=== PATIENT | female | born 1980 | race Hispanic/Latino ===

== ENCOUNTER 2017-07-30 09:11 | Emergency (ER) | payer BC ==
[2017-07-30] MEDS ORDERED: LIDOCAINE HCL 1% 20 ML VIAL ONE (09:21)
[2017-07-30] MEDS ORDERED: TETANUS/DIPHTHERIA TOXOID [ADULT] 0.5 ML VIAL IM ONE (09:22)
[2017-07-30] MEDS ORDERED: AMOXICILLIN/POTASSIUM CLAV 875-125 TABLET PO ONE (09:41)
== END 2017-07-30 11:38 | disposition home or self-care (01) ==
LOC: EDH 09:11
DX: S61.451A Open bite of right hand, initial encounter (principal); G43.909 Migraine, unspecified, not intractable, without status migrainosus; Z91.013 Allergy to seafood; W54.0XXA Bitten by dog, initial encounter; Y93.89 Activity, other specified; Y92.098 Other place in other non-institutional residence as the place of occurrence of the external cause; Y99.8 Other external cause status
CPT/HCPCS: 12042; 73130; 90471; 90714

== ENCOUNTER 2019-06-25 01:56 | Emergency (ER) | payer BC ==
[2019-06-25] MEDS ORDERED: LIDOCAINE HCL 2% VISCOUS 15 ML UDCUP ONE (03:26)
[2019-06-25] MEDS ORDERED: MAG HYDROX/AL HYDROX/SIMETH ES 30 ML SUSP UDCUP ONE (03:26)
== END 2019-06-25 03:37 | disposition home or self-care (01) ==
LOC: EDH 01:56
DX: B34.9 Viral infection, unspecified (principal); G43.909 Migraine, unspecified, not intractable, without status migrainosus; Z91.048 Other nonmedicinal substance allergy status
CPT/HCPCS: 71046; 81025; 87804

== ENCOUNTER 2024-09-15 23:31 | Emergency (ER) | payer BC ==
[~2024-09-15] VITALS: Ht 165.1 cm; Wt 122.5 kg
[2024-09-16 00:08] LABS: BASOPHILS # (AUTO) 0.02 K/uL (0.00-0.20); BASOPHILS % (AUTO) 0.3 % (0.0-5.0); EOSINOPHILS # (AUTO) 0.48 K/uL (0.00-0.70); EOSINOPHILS % (AUTO) 7.6 % (0.0-8.0); IMMATURE GRANULOCYTE ABSOLUTE 0.01 K/uL (0-1); LYMPHOCYTES # (AUTO) 2.1 K/uL (1.0-4.8); LYMPHOCYTES % (AUTO) 33.9 % (21.0-51.0); MEAN CORPUSCULAR HEMOGLOBIN 25.9 pg (27.0-33.0); MEAN CORPUSCULAR HGB CONC 31.7 g/dL (32.0-36.0); MEAN CORPUSCULAR VOLUME 81.6 fL (79-99); MONOCYTES # (AUTO) 0.6 K/uL (0.1-1.0); MONOCYTES % (AUTO) 9.1 % (3.0-13.0); NEUTROPHILS # (AUTO) 3.1 K/uL (1.8-7.7); NEUTROPHILS % (AUTO) 48.9 % (40.0-77.0); PLATELET COUNT (AUTO) 268 K/uL (130-400); RED BLOOD CELL COUNT(AUTO) 4.41 MIL/uL (4.00-5.50); RED CELL DISTRIBUTION WIDTH 14.5 % (11.0-15.5); WHITE BLOOD COUNT (AUTO) 6.3 K/uL (4.8-10.8)
[2024-09-16] MEDS: 0.9%NACL 1000ML 1,000 ML IV ONE (00:10)
[2024-09-16] MEDS: Solu-medROL 125MG VIAL IVP ONE (00:11)
[2024-09-16 00:18] VITALS: PULSE 65; RESP 20
[2024-09-16] MEDS: IpraTROPium/alBUTERol SULFATE 3 ML SOLUTION IH ONE (00:18)
[2024-09-16 00:21] LABS: ABG BASE EXCESS -2.3 mmol/L (-2.0-3.0); ABG HCO3 20.4 mmol/L (21.0-28.0); ABG PCO2 30 mmHg (32-45); ABG PH 7.451 (7.350-7.450); PO2, ARTERIAL BG 102.2 mmHg (83.0-108.0); VENT MODE, BG RA (ROOM AIR)
[2024-09-16 00:21] LABS: CREATININE 0.8 mg/dL (0.5-1.0); POTASSIUM 3.6 mmol/L (3.5-5.1)
[2024-09-16 00:26] LABS: MAGNESIUM 1.9 mg/dL (1.80-2.40)
--- NOTE | 2024-09-16 00:26 | ERN ---
ED Note History of Present Illness Stated Complaint: SOB Chief Complaint: Shortness of Breath Time Seen by MD: 23:35 Time Seen by Midlevel: 23:35 Dictation: The patient is a 44-year-old female with no past medical history who presents to the emergency department with complaints of shortness of breath, cough with yellow sputum onset 10:00 p.m.. Patient reports she has been having on and off upper respiratory symptoms since June. Denies any fevers, sore throat or ear pain. Reports chest pain with coughing. Allergies: Coded Allergies: fish derived (Unverified Allergy, Unknown, 06/25/19) Past Medical History Past Medical History: No Pertinent History Surgical History: None RN Note Reviewed/Agreed w/PFSH: Yes Review of System Dictation Constitutional: Negative for fever,chills, and weight loss Eyes: Negative for injury, pain,redness, and discharge ENT: Negative for injury,pain or swelling Cardiovascular: Negative for chest pain, palpitations, and edema Respiratory: Positive for shortness of breath, cough, and wheezing, Abdomen/GI: Negative for abdominal pain, nausea, vomiting, diarrhea, and constipation Back: Negative for injury and pain : Negative for injury, bleeding and discharge MS/Extremity: Negative for injury and deformity Skin: Negative for rash, and discoloration Neuro: Negative for headache, weakness, numbness, tingling, and seizure Psych: Negative for suicide ideation, homicidal ideation, and hallucinations Initial Vital Sign VS Vital Signs Date Time Temp Pulse Resp B/P (MAP) Pulse Ox O2 Delivery O2 Flow Rate FiO2 09/15/24 23:33 98.4 83 20 138/86 95 Room Air 09/16/24 00:00 0 21 Physical Exam Dictation Vital Signs reviewed General Appearance: Alert, oriented x 3, mild distress, well developed, nourished. Head and Face: non-traumatic. Eyes: PERRL, pink conjunctivas, eyelid no trauma, anterior chamber with arcus senilis. Ears: Pinnas intact and no signs of trauma or erythema ear canals clear and no discharge TM no erythema Nose: No discharge, no bleeding. Oropharynx: Mouth normal, tongue pink. pharynx clear,no erythema, tonsils no exudates, no abscesses noted, mucous membrane moist Neck: Supple, non-tender, no thyromegaly, no masses, no JVD, no bruits Breast:Deferred Chest:No tenderness, no crepitus, no paradoxical movement, no retractions Lungs:Clear, well-ventilated, symmetric, no rales, + wheezing, no rhonchi, no stridor, good breath sounds bilaterally Heart: Regular rate, regular rhythm, no murmur, no gallops Vascular: no peripheral edema, Abdomen: Soft, positive bowel sounds, nondistended, no guarding, nontender, no rebound, no masses no hepatomegaly, no splenomegaly, no Haley's sign, no hernias. Rectal: Deferred Genital: Deferred Neurological: Normal speech, motor function intact, sensory function intact Musculoskeletal: Neck nontender, full range of motion, back nontender, full range of motion, Extremities: nontender, full range of motion Skin: Color pink, dry, no turgor, no rash, no lacerations, no abrasions, no contusions. Lymphatic: Deferred Results (Laboratory/Radiology) Laboratory/Radiology Laboratory Tests Test 09/15/24 23:57 09/16/24 00:20 09/16/24 00:30 09/16/24 01:05 White Blood Count 6.3 K/uL (4.8-10.8) Red Blood Count 4.41 MIL/uL (4.00-5.50) Hemoglobin 11.4 g/dL (12.0-16.0) L Hematocrit 36.0 % (36-48) Mean Corpuscular Volume 81.6 fL (79-99) Mean Corpuscular Hemoglobin 25.9 pg (27.0-33.0) L Mean Corpuscular Hemoglobin Concent 31.7 g/dL (32.0-36.0) L Red Cell Distribution Width 14.5 % (11.0-15.5) Platelet Count 268 K/uL (130-400) Mean Platelet Volume 10.2 fL (7.5-10.5) Immature Granulocyte % (Auto) 0.2 % (0-1) Neutrophils (%) (Auto) 48.9 % (40.0-77.0) Lymphocytes (%) (Auto) 33.9 % (21.0-51.0) Monocytes (%) (Auto) 9.1 % (3.0-13.0) Eosinophils (%) (Auto) 7.6 % (0.0-8.0) Basophils (%) (Auto) 0.3 % (0.0-5.0) Neutrophils # (Auto) 3.1 K/uL (1.8-7.7) Lymphocytes # (Auto) 2.1 K/uL (1.0-4.8) Monocytes # (Auto) 0.6 K/uL (0.1-1.0) Eosinophils # (Auto) 0.48 K/uL (0.00-0.70) Basophils # (Auto) 0.02 K/uL (0.00-0.20) Absolute Immature Granulocyte (auto 0.01 K/uL (0-1) Nucleated Red Blood Cells 0.0 % (0.0-0.19) Sodium Level 140 mmol/L (136-145) Potassium Level 3.6 mmol/L (3.5-5.1) Chloride Level 105 mmol/L (101-111) Carbon Dioxide Level 28 mmol/L (21-32) Blood Urea Nitrogen 18 mg/dL (7-18) Creatinine 0.8 mg/dL (0.5-1.0) Glomerular Filtration Rate Calc 93 mL/min (>90) Random Glucose 89 mg/dL (70-105) Total Calcium 8.5 mg/dL (8.5-10.1) Magnesium Level 1.90 mg/dL (1.80-2.40) Total Creatine Kinase 79 U/L (21-232) Troponin I High Sensitivity < 4 ng/L (4-50) L < 4 ng/L (4-50) L B-Type Natriuretic Peptide 14 pg/mL (0-100) Blood Gas Specimen Type Arterial Arterial Blood pH 7.451 (7.350-7.450) Arterial Blood Partial Pressure CO2 30 mmHg (32-45) L Arterial Blood Partial Pressure O2 102.2 mmHg (83.0-108.0) Arterial Blood HCO3 20.4 mmol/L (21.0-28.0) L Arterial Blood Oxygen Saturation 98.0 % (94.0-98.0) Arterial Blood Base Excess -2.3 mmol/L (-2.0-3.0) L Blood Gas Temperature 37.0 CELSIUS (35.5-37.0) Blood Gas Vent Mode RA (ROOM AIR) FiO2 21.0 % Blood Gas Specimen Comment [employer], RR Urine Color YELLOW (YELLOW) Urine Appearance CLEAR (CLEAR) Urine pH 6.0 (5.0-8.0) Urine Specific Breaks 1.031 (1.001-1.031) Urine Protein NEGATIVE mg/dL (NEGATIVE) Urine Glucose (UA) NEGATIVE mg/dL (NEGATIVE) Urine Ketones NEGATIVE mg/dL (NEGATIVE) Urine Occult Blood NEGATIVE (NEGATIVE) Urine Nitrate NEGATIVE (NEGATIVE) Urine Bilirubin NEGATIVE mg/dL (NEGATIVE) Urine Urobilinogen 3 mg/dL (0.2-1.0) H Urine Leukocyte Esterase 500 Aura/uL (NEGATIVE) H Urine RBC 11-25 /HPF (0-1) H Urine WBC 11-25 /HPF (0-1) H Urine Squamous Epithelial Cells RARE /HPF (0-2) Urine Bacteria None /HPF (None Seen) Urine HCG, Qualitative NEGATIVE (NEGATIVE) Test 09/16/24 01:14 Influenza Type A Antigen Negative For Type A Influenza Type B Antigen Negative For Type B SARS-CoV-2 Antigen (Rapid) PRESUMPTIVE NEGATIVE Labs Reviewed?: Yes EKG: (+) rhythm (Sinus rhythm) EKG Comment: Date:09/15/2024 Time:2334 Ventricular rate:77 MO interval:161 QRS duration:92 QT/QTc:378 EKG interpretation: Sinus rhythm Reviewed by ED Attending no STEMI ED Course ED Course Orders Procedure Category Date Status Time Vital Signs Per CPOE 09/15/24 Transmitted Routine 23:33 B-Type Natriuretic LAB 09/15/24 Complete Peptide 23:33 Chest 1vw RAD 09/15/24 Taken 23:33 12 Lead Ekg Tracing- EKG 09/15/24 Logged Technical 23:33 Oxygen By Nc/Pulse Ox CPOE 09/15/24 Transmitted 23:33 Maintain Iv CPOE 09/15/24 Transmitted 23:33 Iv Insertion CPOE 09/15/24 Transmitted 23:33 Cardiac Monitoring CPOE 09/15/24 Transmitted 23:33 Pulse Oximetry With CPOE 09/15/24 Transmitted Vs And Prn 23:33 Cbc With Differential LAB 09/15/24 Complete 23:33 Activity: Br W/Brp CPOE 09/15/24 Transmitted With Assist 23:33 Creatine Kinase, Total LAB 09/15/24 Complete 23:33 Troponin I High LAB 09/15/24 Complete Sensitivity 23:33 Urinalysis Profile LAB 09/15/24 Complete 23:33 Basic Metabolic Panel LAB 09/15/24 Complete 23:33 Covid19 (Sars Antigen LAB 09/15/24 Complete Rapid) 23:46 Influenza Type A & B, LAB 09/15/24 Complete Rapid 23:46 ,Urine Test LAB 09/15/24 Complete 23:46 Methylprednisolone PHA 09/16/24 Complete Succ 125mg (Solu-Medr 00:00 Ipratropium/Albuterol PHA 09/16/24 Complete Neb (Duoneb) 00:00 0.9%Nacl 1000ml (Ns PHA 09/16/24 In Process 1000ml) 00:00 Arterial Blood Gas RT 09/15/24 Transmitted 23:50 Magnesium LAB 09/15/24 Complete 23:33 Arterial Blood Gas LAB 09/16/24 Complete 00:20 Troponin I High LAB 09/16/24 Complete Sensitivity 00:55 Culture Urine ANGEL LUIS 09/16/24 In Process 01:07 Ceftriaxone 1g Vial PHA 09/16/24 Complete (Rocephine 1g Inj) 01:30 Current Medications Medications (Trade) Dose Ordered Sig/Nesha Route PRN Reason Start Time Stop Time Status Last Admin Dose Admin Albuterol (DUOneb) 1 UDVIAL ONCE ONCE IH 09/16/24 00:00 09/16/24 00:01 DC 09/16/24 00:18 Ceftriaxone Sodium (ROCEphine 1G INJ) 1 gm ONCE ONCE IVPB 09/16/24 01:30 09/16/24 01:31 DC Methylprednisolone Sodium Succinate (Solu-medROL 125MG) 125 mg ONCE ONCE IVP 09/16/24 00:00 09/16/24 00:01 DC 09/16/24 00:11 Sodium Chloride 1,000 ml @ 125 mls/hr ONCE ONCE IV 09/16/24 00:00 09/16/24 07:59 09/16/24 00:10 Vital Signs Date Time Temp Pulse Resp B/P (MAP) Pulse Ox O2 Delivery O2 Flow Rate FiO2 09/16/24 01:02 98.2 80 20 108/79 Room Air* 0 21 09/16/24 00:18 65 20 09/16/24 00:00 98.2 77 20 115/79 99 Room Air* 0 21 09/15/24 23:33 98.4 83 20 138/86 95 Room Air HEART Score Response (Comments) Value History: Low suspicion (0) 0 EKG: Normal 0 Age: < 45yrs (0) 0 Risk Factors: No known risk factors (0) 0 Initial Troponin: Normal limit (0) 0 HEART Score Risk: Low Risk for MACE (1-3) Total 0 Medical Decision Making [facility] The patient is a 44-year-old female with no past medical history who presents to the emergency department with complaints of shortness of breath, cough with yellow sputum onset 10:00 p.m.. Patient reports she has been having on and off upper respiratory symptoms since June. Denies any fevers, sore throat or ear pain. Reports chest pain with coughing. CBC showed no leukocytosis, mild normocytic anemia, chemistry showed no electrolyte imbalance, normal renal function, blood gas showed CO2 of 30, O2 of 102, negative troponin x2, urinalysis positive for leukocyte esterase. Patient treated with the antibiotics, serology negative. Chest x-ray showed no acute infiltrates. Patient improved significantly with nebulizing treatment and steroids. No clear lung sounds and able to speak in complete sentences. Patient O2 saturation at 99% on room air. Labs and imaging discussed with the patient who agrees to be discharged. Patient will be discharged with the steroids and albuterol treatments. Differential diagnosis: Pneumonia, upper respiratory infection, ACS, dehy dration Need for hospitalization: Patient does not meet criteria for hospitalization. There are no social concerns with this patient. DX & DISP Disposition: Discharge Departure Impression: Primary Impression: Bronchospasm, acute Additional Impressions: Shortness of breath, Cough, UTI (urinary tract infection), Chest pain, non-cardiac Condition: Stable Scripts Sulfamethoxazole/Trimethoprim (Bactrim Ds Tablet) 800 Mg-160 Mg Tablet 1 TAB PO BID for 3 Days, #6 TAB 0 Refills Prov: OSMAR FERNANDES [employer]INE[employer] 09/16/24 Albuterol Sulfate (Ventolin Hfa/Proventil Hfa/Proair Hfa) 90 Mcg Puff 1-2 PUFF IH Q4H PRN for SHORTNESS OF BREATH for 5 Days, #1 INH 0 Refills PHARMACY TO DISPENSE 1 INHALER FOR USE Prov: OSMAR FERNANDES [employer] ENGINEER 09/16/24 Methylprednisolone (Medrol) 4 Mg Tab.ds.pk 4 MG PO AD for 6 Days, #1 PACK Day 1: Take 2 tablets before breakfast,1 tablet after lunch and supper, and 2 tablets at bedtime. Day 2: Take1 tablet before breakfast,1 tablet after lunch,1 tablet after supper, and 2 tablets at bedtime. Day 3: Take 1 tablet before breakfast, 1 tablet after lunch, 1 tablet after supper, and 1 tablet at bedtime. Day 4: Take 1 tablet before breakfast, 1 tablet after lunch, and 1 tablet at bedtime. Day 5: Take1 tablet before breakfast and 1 tablet at bedtime. Day 6: Take 1 tablet before breakfast. Prov: OSMAR FERNANDES 09/16/24 Additional Instructions: Please follow up with your primary doctor in 1-2 days. Take medications as prescribed. Continue your antibiotics until finished. If symptoms worsen please return to ER. FOLLOW-UP WITH PRIMARY CARE PROVIDER IN 1 TO 2 DAYS. TAKE MEDICATIONS DIRECTED HERE IN THE EMERGENCY ROOM. OKAY TO CONTINUE HOME MEDICATIONS UNLESS OTHERWISE DISCUSSED DURING YOUR VISIT IN THE EMERGENCY ROOM TODAY. RETURN TO YOUR NEAREST EMERGENCY ROOM IF SYMPTOMS WORSEN OR IF THERE IS NO IMPROVEMENT. CALL 911 IF YOU NEED IMMEDIATE ASSISTANCE. TAKE TYLENOL OR MOTRIN [id number] NEEDED AND IF NO CONTRAINDICATIONS ARE PRESENT. INCREASE ORAL HYDRATION. A WOUND CULTURE OR URINE CULTURE WAS ORDERED HERE IN THE EMERGENCY ROOM DEPARTMENT PLEASE FOLLOW-UP WITH PRIMARY CARE PROVIDER AND ADVISE THEM TO GET REPEAT PORTS FROM OUR FACILITY. IF YOU HAD ANY KIM WRAP/SPLINTS THAT WERE APPLIED HERE, PLEASE DO NOT REMOVE THEM UNTIL YOU SEE YOUR PRIMARY CARE OR SPECIALTY. Referrals: SELF,REFERRAL (PCP) Time of Disposition: 01:47 I have reviewed the case, and I agree with, Diagnosis and Plan OSMAR FERNANDES Sep 16, 2024 00:26
[2024-09-16 00:44] LABS: B-TYPE NATRIURETIC PEPTIDE 14 pg/mL (0-100)
[2024-09-16 00:58] LABS: APPEARANCE,URINE CLEAR (CLEAR); BILIRUBIN,URINE NEGATIVE (NEGATIVE); COLOR,URINE YELLOW (YELLOW); GLUCOSE, URINE (UA) NEGATIVE (NEGATIVE); KETONES,URINE NEGATIVE (NEGATIVE); LEUKOCYTE ESTERASE ,URINE 500 Leu/uL (NEGATIVE); NITRATE,URINE NEGATIVE (NEGATIVE); OCCULT BLOOD,URINE NEGATIVE (NEGATIVE); PROTEIN,URINE NEGATIVE (NEGATIVE); UROBILINOGEN,URINE 3 mg/dL (0.2-1.0)
[2024-09-16 01:03] LABS: ADD UA MICROSCOPIC YES
[2024-09-16 01:09] LABS: MUCUS,URINE RARE LPF (None Seen); SQUAMOUS EPITHELIAL CELL,UR RARE /HPF (0-2)
[2024-09-16] MEDS ORDERED: cefTRIAXone 1G VIAL IVPB ONE (01:30)
[2024-09-16 01:39] LABS: INFLUENZA TYPE A Negative For Type A (NEGATIVE); INFLUENZA TYPE B Negative For Type B (NEGATIVE)
[2024-09-16 01:43] LABS: COVID19 (SARS ANTIGEN RAPID) PRESUMPTIVE NEGATIVE (NEGATIVE)
[2024-09-16] MEDS ORDERED: SULF1TAB42 PO (01:51)
[2024-09-16] MEDS ORDERED: ALBUHFA IH (01:51)
[2024-09-16] MEDS ORDERED: METH4TAB3 PO (01:51)
[2024-09-16 02:06] VITALS: BP 121/76; PULSE 70; RESP 18; TEMP 97.2; O2SAT 99
--- NOTE | 2024-09-16 08:31 | HMCIMG ---
PORTABLE CHEST RADIOGRAPH INDICATION: CHEST PAIN COMPARISON: 06/25/2019 FINDINGS: Heart size is normal. The pulmonary vascularity and harjinder appear normal. No abnormal pulmonary parenchymal opacity or consolidation identified. No significant pleural effusion noted. No pneumothorax detected. IMPRESSION: No radiographic evidence for any acute cardiopulmonary process.
--- NOTE | 2024-09-16 10:46 | EKG ---
[facility] Test Date: 2024-09-15 Test Time: 23:34:15 Pat Name: SATHYA MONCADA Department: ED Room: Gender: F Manager Clinical Applications: [id number] Requested By: RAQUEL JUNG Order Number: [id number] Reading MD: Joel Maldonado Measurements Intervals [place] Rate: 77 P: 58 MD: 161 QRS: 32 QRSD: 92 T: 44 QT: 378 QTc: 427 Interpretive Statements Sinus rhythm Low voltage, precordial leads Compared to ECG 01/26/2017 20:46:44 Low QRS voltage now present Electronically Signed On 09-16-2024 11:45:55 CDT by Joel Maldonado Please click the below link to view image of tracing.
== END 2024-09-16 02:08 | disposition home or self-care (01) ==
LOC: EDH 23:31
DX: J98.01 Acute bronchospasm (principal); R06.02 Shortness of breath; R05.9 Cough, unspecified; N39.0 Urinary tract infection, site not specified; R07.89 Other chest pain; Z20.822 Contact with and (suspected) exposure to COVID-19
CPT/HCPCS: 99284; 71045; 87426; 82550; 83735; 84484 ×2; 80048; 82803; 83880; 85025; 87086; 87804 ×2; 81001; 81025; 36415; 93005; 96374; 36600; 94640; J2919